=== PATIENT | female | born 1970 | race Caucasian/White ===

== ENCOUNTER → 2016-09-17 | Outpatient (CLI) | payer OTHER ==
[~2016-09-17] MED LIST: COLACE 100MG C100 MG PO; CYMBALTA60 MG PO; IBUPROFEN600 MG PO; NEURONTIN 400400 MG PO; NORCO 5-325 TA1 EACH PO; NORCO 7.5-3251 EACH PO
== END ==
LOC: HEART 5 10:47
DX: J44.0 Chronic obstructive pulmonary disease with (acute) lower respiratory infection (principal); J20.9 Acute bronchitis, unspecified; J44.1 Chronic obstructive pulmonary disease with (acute) exacerbation; M50.90 Cervical disc disorder, unspecified, unspecified cervical region; N88.9 Noninflammatory disorder of cervix uteri, unspecified; R63.4 Abnormal weight loss; J30.9 Allergic rhinitis, unspecified; R52 Pain, unspecified; F17.210 Nicotine dependence, cigarettes, uncomplicated; R94.2 Abnormal results of pulmonary function studies
CPT/HCPCS: 94060; 94729

== ENCOUNTER → 2016-12-04 | Outpatient (CLI) | payer OTHER | LOC: CT 13:00 | DX: R91.1 Solitary pulmonary nodule (principal); J43.9 Emphysema, unspecified; J98.4 Other disorders of lung; J98.11 Atelectasis | CPT/HCPCS: 71250 ==

== ENCOUNTER → 2020-09-19 | Outpatient (CLI) | payer OTHER ==
[~2020-09-19] MED LIST changes: +24HR ALLERGY REL5 MG PO; +ALBUTEROL2.5 MG/3 M INH; +BELSOMRA20 MG PO; +FEOSOL325 MG PO; +FLEXERIL 10 MG10 MG PO; +FLOVENT DISKUS50 MCG INH; +HYDROXYZINE HCL10 MG PO; +INCRUSE ELLI62.5 MCG INH; +MICROZIDE12.5 MG PO; +STIOLTO RESPIMAT4 GM INH; +SYMBICORT 160-1 INHA INH; +SYMBICORT 16010.2 GM INH; +VENTOLIN HFA 66.7 GM INH; +VIBRAMYCIN100 MG PO
[2020-09-19 15:27] LABS: HEMOGLOBIN 13.6 gm/dl (12.3-15.3); RED BLOOD COUNT 4.41 M/UL (4.00-5.10); WHITE BLOOD COUNT 6.9 K/UL (4.5-11.0)
[2020-09-19 15:54] LABS: BUN/CREATININE RATIO 21 (0-10)
== END ==
LOC: CT 09-07 10:00
PROVIDERS: Nurse Practitioner Family
DX: M54.5 Low back pain (principal); M54.6 Pain in thoracic spine; I51.89 Other ill-defined heart diseases; F41.9 Anxiety disorder, unspecified; E55.9 Vitamin D deficiency, unspecified; C34.12 Malignant neoplasm of upper lobe, left bronchus or lung; F17.210 Nicotine dependence, cigarettes, uncomplicated; I26.99 Other pulmonary embolism without acute cor pulmonale; Z13.220 Encounter for screening for lipoid disorders; J43.9 Emphysema, unspecified; Z90.49 Acquired absence of other specified parts of digestive tract
CPT/HCPCS: 36415; 71260; 72070; 72100; 80053; 80061; 81001; 83735; 84439; 84443; 85025; J1642; Q9963

== ENCOUNTER → 2020-09-26 | Outpatient (CLI) | payer OTHER | LOC: ECHO 10:30 | DX: I51.89 Other ill-defined heart diseases (principal); I34.0 Nonrheumatic mitral (valve) insufficiency | CPT/HCPCS: ECHO; 93306 ==

== ENCOUNTER → 2020-10-04 | Outpatient (CLI) | payer OTHER | LOC: KOH-I 14:26 | DX: H90.6 Mixed conductive and sensorineural hearing loss, bilateral (principal); H93.8X1 Other specified disorders of right ear | CPT/HCPCS: 70480 ==

== ENCOUNTER → 2020-12-06 | Outpatient (CLI) | payer OTHER | LOC: RAD 13:14 | DX: M25.552 Pain in left hip (principal) | CPT/HCPCS: 73502 ==

== ENCOUNTER → 2021-01-24 | Day surgery (SDC) | payer OTHER ==
[~2021-01-24] VITALS: Ht 158.8 cm; Wt 50.8 kg
== END | disposition home or self-care (01) ==
LOC: OR 06:21
DX: Z12.11 Encounter for screening for malignant neoplasm of colon (principal); Z85.118 Personal history of other malignant neoplasm of bronchus and lung; F41.9 Anxiety disorder, unspecified; J43.9 Emphysema, unspecified; F32.9 Major depressive disorder, single episode, unspecified; F17.200 Nicotine dependence, unspecified, uncomplicated; E55.9 Vitamin D deficiency, unspecified; Z88.2 Allergy status to sulfonamides; Z20.822 Contact with and (suspected) exposure to COVID-19; I50.30 Unspecified diastolic (congestive) heart failure
CPT/HCPCS: J1642; J2250; J2704; J7030

== ENCOUNTER → 2021-04-11 | Outpatient (CLI) | payer OTHER ==
[~2021-04-11] VITALS: Ht 157.5 cm; Wt 49.9 kg
== END ==
LOC: CT 13:30
DX: R79.89 Other specified abnormal findings of blood chemistry (principal); C34.12 Malignant neoplasm of upper lobe, left bronchus or lung; F17.210 Nicotine dependence, cigarettes, uncomplicated; I26.99 Other pulmonary embolism without acute cor pulmonale; R91.8 Other nonspecific abnormal finding of lung field
CPT/HCPCS: 36415; 71260; 84439; 84443; 96523; J1642; Q9967

== ENCOUNTER → 2021-10-06 | Outpatient (CLI) | payer OTHER ==
[2021-10-06 13:52] LABS: HEMOGLOBIN 13.5 gm/dl (12.3-15.3); RED BLOOD COUNT 4.24 M/UL (4.00-5.10); WHITE BLOOD COUNT 8.3 K/UL (4.5-11.0)
[2021-10-06 14:23] LABS: BUN/CREATININE RATIO 12 (0-10)
== END ==
LOC: CT 13:00
PROVIDERS: Internal Medicine Hematology & Oncology
DX: C34.12 Malignant neoplasm of upper lobe, left bronchus or lung (principal); F17.210 Nicotine dependence, cigarettes, uncomplicated; I26.99 Other pulmonary embolism without acute cor pulmonale
CPT/HCPCS: 36415; 71260; 80053; 85027; Q9967

== ENCOUNTER → 2021-12-27 | Outpatient (CLI) | payer OTHER | LOC: HEART 5 11:37 | DX: M25.562 Pain in left knee (principal) | CPT/HCPCS: 73562 ==

== ENCOUNTER → 2022-01-23 | Outpatient (CLI) | payer OTHER | LOC: MAMO 15:00 | DX: Z12.31 Encounter for screening mammogram for malignant neoplasm of breast (principal) | CPT/HCPCS: 77063; 77067 ==

== ENCOUNTER → 2022-03-15 | Outpatient (CLI) | payer OTHER | LOC: US 14:01 → MAMO 03-28 10:00 | DX: R92.8 Other abnormal and inconclusive findings on diagnostic imaging of breast (principal) | CPT/HCPCS: 76641; 77066; G0279 ==